=== PATIENT | male | born 1945 | race Caucasian/White ===

== ENCOUNTER 2019-02-13 14:45 | Emergency (ER) | payer OTHER ==
[~2019-02-13] VITALS: Ht 175.3 cm; Wt 70.0 kg
[2019-02-13 17:25] VITALS: BP 131/73
== END 2019-02-13 18:37 | disposition home or self-care (01) ==
LOC: ER 14:45
DX: S00.03XA Contusion of scalp, initial encounter (principal); I48.91 Unspecified atrial fibrillation; E11.22 Type 2 diabetes mellitus with diabetic chronic kidney disease; I13.0 Hypertensive heart and chronic kidney disease with heart failure and stage 1 through stage 4 chronic kidney disease, or unspecified chronic kidney disease; N18.9 Chronic kidney disease, unspecified; I50.9 Heart failure, unspecified; Z88.8 Allergy status to other drugs, medicaments and biological substances; Z88.5 Allergy status to narcotic agent; Z79.01 Long term (current) use of anticoagulants; W01.198A Fall on same level from slipping, tripping and stumbling with subsequent striking against other object, initial encounter; Y93.89 Activity, other specified; Y92.018 Other place in single-family (private) house as the place of occurrence of the external cause
CPT/HCPCS: 99284